=== PATIENT | male | born 1960 | race Caucasian/White ===

== ENCOUNTER 2023-01-04 04:00 | Emergency (ER) | payer MEDICAID ==
[~2023-01-04] VITALS: Ht 185.4 cm; Wt 120.2 kg
[2023-01-04 04:14] VITALS: BP 157/73; TEMP 98.1; O2SAT 97
[2023-01-04] MEDS ORDERED: MORPHINE SULFATE INJ 2 MG/ML DISP.SYRIN IM ONE (04:30)
[2023-01-04] MEDS ORDERED: ONDANSETRON 4 MG TAB.RAPDIS SL ONE (04:30)
[2023-01-04] MEDS ORDERED: MORPHINE SULFATE INJ 4 MG/ML DISP.SYRIN ONE (04:38)
[2023-01-04] MEDS ORDERED: ONDANSETRON 4 MG TAB.RAPDIS ONE (04:39)
[2023-01-04] MEDS ORDERED: KETOROLAC TROMETHAMINE INJ 60 MG/2 ML VIAL IM ONE (06:30)
[2023-01-04] MEDS ORDERED: KETOROLAC TROMETHAMINE INJ 30 MG/ML VIAL ONE (06:36)
== END 2023-01-04 07:00 | disposition home or self-care (01) ==
LOC: ER 04:09
DX: G89.18 Other acute postprocedural pain (principal); M54.50 Low back pain, unspecified; I10 Essential (primary) hypertension; Z90.89 Acquired absence of other organs
CPT/HCPCS: 99284; 96372 ×2; J2270; J1885; Q0162